=== PATIENT | female | born 1995 | race Caucasian/White ===

== ENCOUNTER 2020-12-11 16:00 | Inpatient (IN) | payer BC ==
[2020-12-11] MEDS ORDERED: Acetaminophen 325 MG Tab PO PRN (17:35)
[2020-12-11] MEDS ORDERED: Sodium Chloride 0.9% 10 ML Syringe FLUSH PRN (17:35)
[2020-12-11] MEDS ORDERED: Nalbuphine 10 MG/1 ML Vial IVPUSH PRN (17:35)
--- NOTE | 2020-12-11 17:41 | PCM.LDHP ---
L&D History of Present Illness - General Date of Service: 12/11/20 Admit Problem/Dx: Patient Status Order with Admit Dx/Problem 12/11/20 16:25 Patient Status [ADT] Routine 12/11/20 17:35 Patient Status [ADT] Routine Admission Diagnosis/Problem Admission Diagnosis/Problem - Related Data Allergies/Adverse Reactions: Allergies Allergy/AdvReac Type Severity Reaction Status Date / Time latex Allergy Rash Verified 12/11/20 16:42 Home Medications: Home Meds Vits #93/Iron Fum/FA [ Formula Tablet] 1 tab PO DAILY 12/10/20 [History] Past Medical History - Past Surgical History HEENT Surgical History: Reports: Oral Surgery Social & Family History - Family History Family Medical History: No Pertinent Family History L&D Exam - Vital Signs Weight: 87.997 kg Orders Last 24hrs: Active Orders 24 hr Category Date Time Status Patient Status [ADT] Routine ADT 12/11/20 16:25 Active Patient Status [ADT] Routine ADT 12/11/20 17:35 Ordered Communication Order [RC] ASDIRECTED Care 12/11/20 17:35 Ordered Communication Order [RC] ASDIRECTED Care 12/11/20 17:35 Ordered Communication Order [RC] ASDIRECTED Care 12/11/20 17:35 Ordered Heart Tones [RC] ASDIRECTED Care 12/11/20 17:35 Ordered Non Stress Test [RC] PER UNIT ROUTINE Care 12/11/20 16:42 Active Notify Provider [RC] ASDIRECTED Care 12/11/20 17:35 Ordered Notify Provider [RC] PRN Care 12/11/20 17:35 Ordered Peripheral IV Care [RC] . DIRECTED Care 12/11/20 17:35 Ordered Up ad Bernice [RC] ASDIRECTED Care 12/11/20 17:36 Ordered Vaginal Exam [RC] ASDIRECTED Care 12/11/20 17:35 Ordered Vital Signs [RC] ASDIRECTED Care 12/11/20 17:35 Ordered Vital Signs [RC] PER UNIT ROUTINE Care 12/11/20 16:42 Active Regular Diet [DIET] Diet 12/11/20 Dinner Active Regular Diet [DIET] Diet 12/11/20 Dinner Ordered ALANINE AMINOTRANSFERASE,ALT [CHEM] Routine Lab 12/11/20 17:39 Ordered ASPARTATE AMNIOTRANSFERASE,AST [CHEM] Routine Lab 12/11/20 17:39 Ordered CBC W/O DIFF,HEMOGRAM [HEME] Routine Lab 12/11/20 17:35 Ordered CORONAVIRUS COVID-19 JAZMIN [MOLEC] Stat Lab 12/11/20 17:39 Ordered CREATININE W/GFR [CHEM] Routine Lab 12/11/20 17:39 Ordered PROTEIN/CREATININE RATIO,URINE [URCHEM] Routine Lab 12/11/20 17:39 Ordered RAPID PLASMA REAGIN,RPR [CHEM] Routine Lab 12/11/20 17:35 Ordered TYPE AND SCREEN [BBK] Routine Lab 12/11/20 17:35 Ordered Acetaminophen [TylenoL] Med 12/11/20 17:35 Ordered 650 mg PO Q4H PRN Ampicillin 1 gm Med 12/12/20 11:00 Ordered Sodium Chloride 0.9% [Normal Saline] 100 ml IV Q4H Ampicillin 2 gm Med 12/12/20 07:00 Ordered Sodium Chloride 0.9% [Normal Saline] 100 ml IV ONETIME Lactated Ringers [Ringers, Lactated] 1,000 ml Med 12/11/20 17:45 Ordered IV ASDIRECTED Nalbuphine [Nubain] Med 12/11/20 17:35 Ordered 10 mg IVPUSH Q2H PRN Ondansetron [Zofran] Med 12/11/20 17:35 Ordered 4 mg IVPUSH Q4H PRN Oxytocin/Lactated Ringers [Pitocin in LR 10 Units/1,000 Med 12/11/20 17:45 Ordered ML] 10 unit in 1,000 ml IV .CONTINUOUS Oxytocin/Lactated Ringers [Pitocin in LR 10 Units/1,000 Med 12/11/20 17:45 Ordered ML] 10 unit in 1,000 ml IV TITRATE Sodium Chloride 0.9% [Saline Flush] Med 12/11/20 17:35 Ordered 10 ml FLUSH ASDIRECTED PRN miSOPROStoL [Cytotec] Med 12/11/20 17:35 Ordered 25 mcg VAG Q4H PRN Electronic Heart Tones Ext w TOCO [WOMSER] Oth 12/11/20 17:35 Ordered Routine Electronic Heart Tones Internal [WOMSER] Per Unit Oth 12/11/20 17:35 Ordered Routine Medication Administration Instruction [OM.PC] Oth 12/11/20 17:45 Ordered ASDIRECTED PIH Panel [OM.PC] Routine Oth 12/11/20 17:35 Ordered Peripheral IV Insertion Adult [OM.PC] Routine Oth 12/11/20 17:35 Ordered Resuscitation Status Routine Resus Stat 12/11/20 16:42 Ordered Medication Orders Acetaminophen (Acetaminophen 325 Mg Tab) 650 mg PO Q4H PRN PRN Reason: Pain (Mild 1-3) and fever Lactated Ringer's (Ringers, Lactated) 1,000 mls @ 40 mls/hr IV ASDIRECTED PETEY Oxytocin/Lactated Ringer's (Pitocin In Lr 10 Units/1,000 Ml) 10 unit in 1,000 mls @ 12 mls/hr IV TITRATE PETEY; Protocol Ampicillin Sodium 2 gm/ Sodium (Chloride) 100 mls @ 200 mls/hr IV ONETIME ONE Stop: 12/12/20 07:29 Ampicillin Sodium 1 gm/ Sodium (Chloride) 100 mls @ 200 mls/hr IV Q4H PETEY Oxytocin/Lactated Ringer's (Pitocin In Lr 10 Units/1,000 Ml) 10 unit in 1,000 mls @ 500 mls/hr IV .CONTINUOUS PETEY Misoprostol (Misoprostol 100 Mcg Tab) 25 mcg VAG Q4H PRN PRN Reason: cervical ripening Nalbuphine HCl (Nalbuphine 10 Mg/1 Ml Vial) 10 mg IVPUSH Q2H PRN PRN Reason: Pain Ondansetron HCl (Ondansetron 4 Mg/2 Ml Sdv) 4 mg IVPUSH Q4H PRN PRN Reason: Nausea/Vomiting Sodium Chloride (Sodium Chloride 0.9% 10 Ml Syringe) 10 ml FLUSH ASDIRECTED PRN PRN Reason: Keep Vein Open
[2020-12-11] MEDS ORDERED: Oxytocin/Lactated Ringers 10 UNIT/1,000 ML BAG IV SCH ×2 (17:45)
--- NOTE | 2020-12-11 18:21 | PCM.LDHP ---
<Siobhan Zamora - Last Filed: 12/11/20 17:58> L&D History of Present Illness - General Date of Service: 12/11/20 Admit Problem/Dx: Patient Status Order with Admit Dx/Problem 12/11/20 16:25 Patient Status [ADT] Routine 12/11/20 17:35 Patient Status [ADT] Routine Admission Diagnosis/Problem Admission Diagnosis/Problem Source of Information: Patient History Limitations: Reports: No Limitations - History of Present Illness Introduction:: Patient is a 25 year old GBS + B+ who present today at 37-6 weeks gestational age (LONG 12/26/20) for evaluation of dizziness and headache. Present Illness Comments:: Patient is a 25 year old GBS + B+ who present today at 37-6 weeks gestational age (LONG 12/26/20) by 5 week US for evaluation of dizziness and he adache. She states that she noticed some dizziness and shortness of breath following the of a premature calf today. She also states that her vision seemed blurry while walking into the hospital. she also reports a headache that improved with Tylenol initially but has since returned. She was evaluated in clinic yesterday and found to have mildly elevated blood pressures; she was sent over to L&D yesterday for evaluation and her blood pressures normalized. However, today she presented with the above symptoms. Patient reports a history of anxiety, congenital anomaly of the brain, cholecystectomy and colonoscopy with tubular adenomatous colon polyp and melanosis coli. . Patient received [facility] care with Dr. Marlow. No other known complications during her . Her blood pressures remained mildly elevated (130s/90s) during her OB Triage and the decision was to admit for induction/augmentation of labor. Flu vaccine given 06/07/20, Tdap 10/22/20. OBGYN History G1: current labs: Blood type:B+ Antibody screen: Negative Rubella status: Non immune Hepatitis B surface antigen: negative RPR: negative HIV: negative Gonorrhea: Negative Chlamydia: negative Anatomy US: Marie IUP with normal growth, CHAD, placental location and anatomy One hour glucose tolerance test: 112 Second trimester hemoglobin: 10.8 Platelets: 250,000 GBS status: positive - Related Data Allergies/Adverse Reactions: Allergies Allergy/AdvReac Type Severity Reaction Status Date / Time latex Allergy Rash Verified 12/11/20 16:42 Home Medications: Home Meds Vits #93/Iron Fum/FA [ Formula Tablet] 1 tab PO DAILY 12/10/20 [History] Past Medical History Neurological History: Reports: Other (See Below) (Cognential malformation, brain stem) - Past Surgical History HEENT Surgical History: Reports: Oral Surgery GI Surgical History: Reports: Cholecystectomy, Colonoscopy (polyp removal) Dermatological Surgical History: Reports: Other (See Below) (Excisional biopsy - nevus) Social & Family History - Family History Family Medical History: No Pertinent Family History - Tobacco Core Measures Tobacco Use/Smoking Within Last 30 Days: No - Alcohol Use Alcohol Use History: No - Recreational Drug Use Recreational Drug Use: No H&P Review of Systems - Review of Systems: Review Of Systems: See Below General: Reports: No Symptoms HEENT: Reports: No Symptoms Pulmonary: Reports: No Symptoms Cardiovascular: Reports: No Symptoms Gastrointestinal: Reports: No Symptoms Genitourinary: Reports: No Symptoms Musculoskeletal: Reports: No Symptoms Skin: Reports: No Symptoms Psychiatric: Reports: No Symptoms Neurological: Reports: No Symptoms L&D Exam - Exam Exam: See Below - Vital Signs Weight: 87.997 kg - OB Specific Movement: Active Heart Tones: Present - Exam General: Alert, Oriented HEENT: Conjunctiva Clear, EOMI Lungs: Clear to Auscultation, Normal Respiratory Effort Cardiovascular: Regular Rate, Regular Rhythm GI/Abdominal Exam: Normal Bowel Sounds, Soft, Non-Tender Extremities: Normal Inspection, Non-Tender, Normal Capillary Refill Skin: Warm, Dry, Intact Psychiatric: Alert, Normal Affect, Normal Mood - Problem List (1) Group B streptococcal carriage complicating SNOMED Code(s): 782582950432647 ICD Code: O99.820 - STREPTOCOCCUS B CARRIER STATE COMPLICATING Status: Acute Current Visit: Yes (2) 37 weeks gestation of SNOMED Code(s): 60415091 ICD Code: Z3A.37 - 37 WEEKS GESTATION OF Status: Acute Current Visit: Yes (3) Elevated blood pressure affecting in third trimester, antepartum SNOMED Code(s): 65167429, 46126012, 122288269 ICD Code: O16.3 - UNSPECIFIED MATERNAL HYPERTENSION, THIRD TRIMESTER Status: Acute Current Visit: Yes (4) Not immune to rubella SNOMED Code(s): 264184704 ICD Code: Z78.9 - OTHER SPECIFIED HEALTH STATUS Status: Acute Current Visit: Yes (5) Anxiety SNOMED Code(s): 23446824 ICD Code: F41.9 - ANXIETY DISORDER, UNSPECIFIED Status: Acute Current Vi sit: Yes Problem List Initiated/Reviewed/Updated: Yes Orders Last 24hrs: Active Orders 24 hr Category Date Time Status Patient Status [ADT] Routine ADT 12/11/20 16:25 Active Patient Status [ADT] Routine ADT 12/11/20 17:35 Active Communication Order [RC] ASDIRECTED Care 12/11/20 17:35 Active Communication Order [RC] ASDIRECTED Care 12/11/20 17:35 Active Communication Order [RC] ASDIRECTED Care 12/11/20 17:35 Active Heart Tones [RC] ASDIRECTED Care 12/11/20 17:35 Active Non Stress Test [RC] PER UNIT ROUTINE Care 12/11/20 16:42 Active Notify Provider [RC] ASDIRECTED Care 12/11/20 17:35 Active Notify Provider [RC] PRN Care 12/11/20 17:35 Active Peripheral IV Care [RC] . DIRECTED Care 12/11/20 17:35 Active Up ad Bernice [RC] ASDIRECTED Care 12/11/20 17:36 Active Vaginal Exam [RC] ASDIRECTED Care 12/11/20 17:35 Active Vital Signs [RC] ASDIRECTED Care 12/11/20 17:35 Active Vital Signs [RC] PER UNIT ROUTINE Care 12/11/20 16:42 Active Regular Diet [DIET] Diet 12/11/20 Dinner Active Regular Diet [DIET] Diet 12/11/20 Dinner Active ALANINE AMINOTRANSFERASE,ALT [CHEM] Routine Lab 12/11/20 17:39 Ordered ASPARTATE AMNIOTRANSFERASE,AST [CHEM] Routine Lab 12/11/20 17:39 Ordered CBC W/O DIFF,HEMOGRAM [HEME] Routine Lab 12/11/20 17:35 Ordered CORONAVIRUS COVID-19 JAZMIN [MOLEC] Stat Lab 12/11/20 17:39 Ordered CREATININE W/GFR [CHEM] Routine Lab 12/11/20 17:39 Ordered PROTEIN/CREATININE RATIO,URINE [URCHEM] Routine Lab 12/11/20 17:39 Ordered RAPID PLASMA REAGIN,RPR [CHEM] Routine Lab 12/11/20 17:35 Ordered TYPE AND SCREEN [BBK] Routine Lab 12/11/20 17:35 Ordered Acetaminophen [TylenoL] Med 12/11/20 17:35 Active 650 mg PO Q4H PRN Ampicillin 1 gm Med 12/12/20 11:00 Active Sodium Chloride 0.9% [Normal Saline] 100 ml IV Q4H Ampicillin 2 gm Med 12/12/20 07:00 Active Sodium Chloride 0.9% [Normal Saline] 100 ml IV ONETIME Lactated Ringers [Ringers, Lactated] 1,000 ml Med 12/11/20 17:45 Active IV ASDIRECTED Nalbuphine [Nubain] Med 12/11/20 17:35 Active 10 mg IVPUSH Q2H PRN Ondansetron [Zofran] Med 12/11/20 17:35 Active 4 mg IVPUSH Q4H PRN Oxytocin/Lactated Ringers [Pitocin in LR 10 Units/1,000 Med 12/11/20 17:45 Active ML] 10 unit in 1,000 ml IV .CONTINUOUS Oxytocin/Lactated Ringers [Pitocin in LR 10 Units/1,000 Med 12/11/20 17:45 A ctive ML] 10 unit in 1,000 ml IV TITRATE Sodium Chloride 0.9% [Saline Flush] Med 12/11/20 17:35 Active 10 ml FLUSH ASDIRECTED PRN miSOPROStoL [Cytotec] Med 12/11/20 17:35 Active 25 mcg VAG Q4H PRN Electronic Heart Tones Ext w TOCO [WOMSER] Oth 12/11/20 17:35 Ordered Routine Electronic Heart Tones Internal [WOMSER] Per Unit Oth 12/11/20 17:35 Ord ered Routine Medication Administration Instruction [OM.PC] Oth 12/11/20 17:45 Ordered ASDIRECTED PIH Panel [OM.PC] Routine Oth 12/11/20 17:35 Ordered Peripheral IV Insertion Adult [OM.PC] Routine Ot 12/11/20 17:35 Ordered Resuscitation Status Routine Resus Stat 12/11/20 16:42 Ordered Medication Orders Acetaminophen (Acetaminophen 325 Mg Tab) 650 mg PO Q4H PRN PRN Reason: Pain (Mild 1-3) and fever Lactated Ringer's (Ringers, Lactated) 1,000 mls @ 40 mls/hr IV ASDIRECTED PETEY Oxytocin/Lactated Ringer's (Pitocin In Lr 10 Units/1,000 Ml) 10 unit in 1,000 mls @ 12 mls/hr IV TITRATE PETEY; Protocol Ampicillin Sodium 2 gm/ Sodium (Chloride) 100 mls @ 200 mls/hr IV ONETIME ONE Stop: 12/12/20 07:29 Ampicillin Sodium 1 gm/ Sodium (Chloride) 100 mls @ 200 mls/hr IV Q4H PETEY Oxytocin/Lactated Ringer's (Pitocin In Lr 10 Units/1,000 Ml) 10 unit in 1,000 mls @ 500 mls/hr IV .CONTINUOUS PETEY Misoprostol (Misoprostol 25 Mcg (1/4 Of 100 Mcg) Tab) 25 mcg VAG Q4H PRN PRN Reason: cervical ripening Nalbuphine HCl (Nalbuphine 10 Mg/1 Ml Vial) 10 mg IVPUSH Q2H PRN PRN Reason: Pain Ondansetron HCl (Ondansetron 4 Mg/2 Ml Sdv) 4 mg IVPUSH Q4H PRN PRN Reason: Nausea/Vomiting Sodium Chloride (Sodium Chloride 0.9% 10 Ml Syringe) 10 ml FLUSH ASDIRECTED PRN PRN Reason: Keep Vein Open Assessment/Plan Comment:: Patient is a 25 year old GBS + B+ who present today at 37-6 weeks gestational age (LONG 12/26/20) for evaluation of dizziness and ongoing headache. Blood pressure remained elevated; patient was previously evaluated yesterday for elevated blood pressures. Decision was made to proceed with induction of labor. 1. Induction of labor with Cytotec, augmentation with Pitocin and AROM as indicated 2. B+ with negative antibody screen 3. Rubella non immune - MMR vaccine on discharge 4. GBS positive - ampicillin 2 mg followed by 1 mg every 4 hours until adequately treated 5. Continuous monitoring 6. Monitor blood pressures, patient denies headache or changes in vision. BP has remained 130s/90s 7. Small amounts of regular diet 8. Activity as tolerated 9. Epidural or other pain management if desired 10. Anticipate vaginal delivery unless otherwise indicated 11. Plans to breastfeed <Harriet Marlow - Last Filed: 12/11/20 19:14> L&D History of Present Illness - General Admit Problem/Dx: Patient Status Order with Admit Dx/Problem 12/11/20 16:25 Patient Status [ADT] Routine 12/11/20 17:35 Patient Status [ADT] Routine Admission Diagnosis/Problem Admission Diagnosis/Problem - Patient Data Result Diagrams: 12/11/20 17:55 12/11/20 17:55 - Problem List (1) 37 weeks gestation of SNOMED Code(s): 53872124 ICD Code: Z3A.37 - 37 WEEKS GESTATION OF Status: Acute Current Visit: Yes (2) Elevated blood pressure affecting in third trimester, antepartum SNOMED Code(s): 20980696, 50757837, 831167270 ICD Code: O16.3 - UNSPECIFIED MATERNAL HYPERTENSION, THIRD TRIMESTER Status: Acute Current Visit: Yes (3) Group B streptococcal carriage complicating SNOMED Code(s): 656389648284633 ICD Code: O99.820 - STREPTOCOCCUS B CARRIER STATE COMPLICATING Status: Acute Current Visit: Yes (4) Not immune to rubella SNOMED Code(s): 693121956 ICD Code: Z78.9 - OTHER SPECIFIED HEALTH STATUS Status: Acute Current Visit: Yes Problem List Initiated/Reviewed/Updated: Yes Assessment/Plan Comment:: Patient is a 25 y/o at 37 6/7 wks. Yesterday patient with routine clinic appointment with 2 elevated BP's. Sent to L&D where first BP mild range and remainder normal. Lab work done and WNL. Reviewed findings and discharged patient to home with close follow up planned for tomorrow. Called, however, clinic today feeling unwell and was asked to present to L&D. Has some symptoms of dizziness/lightheadedness, but also headache. Treated this headache this AM with tylenol and resolved, but now returning. BP's upper limit of normal and 1 mild range BP again on initial evaluation. Exam shows patient to have +3 patellar and biceps reflexes. Reviewed with patient likely enough criteria to diagnosis with BP disorder of even though BP's not consistently elevated. Reviewed with patient options and recommendations to stay for IOL. She agrees. Labs to be done. Monitor BP's closely. Cytotec for IOL with pitocin and AROM as necessary. Start GBS prophylaxis when more active in labor. Pain management per patient preference. Anticipate Harriet Marlow MD
[2020-12-11] MEDS: Misoprostol 25 MCG (1/4 of 100 MCG) Tab VAG PRN ×2 (18:33→22:32)
[2020-12-11] MEDS ORDERED: Zolpidem 10 MG Tab PO PRN (20:31)
[2020-12-11] MEDS: Lactated Ringers 1,000 ML IV SCH (23:17)
[2020-12-12] MEDS: Misoprostol 25 MCG (1/4 of 100 MCG) Tab VAG PRN (03:12)
[2020-12-12] MEDS ORDERED: Ampicillin 2 GM in Sodium Chloride 0.9% 100 ML IV ONE (07:00)
--- NOTE | 2020-12-12 07:35 | PCM.PNLD ---
Labor Progress Note - VS & Meds Vital Signs: Last Vital Signs Temp 36.6 C 12/11/20 16:42 Pulse 78 12/11/20 19:01 Resp 14 12/11/20 16:42 BP 127/82 12/11/20 19:01 Pulse Ox 100 12/11/20 16:42 Active Medications: Current Medications Acetaminophen (Acetaminophen 325 Mg Tab) 650 mg PO Q4H PRN PRN Reason: Pain (Mild 1-3) and fever Lactated Ringer's (Ringers, Lactated) 1,000 mls @ 40 mls/hr IV ASDIRECTED PETEY Last Admin: 12/11/20 23:17 Dose: 40 mls/hr Documented by: Oxytocin/Lactated Ringer's (Pitocin In Lr 10 Units/1,000 Ml) 10 unit in 1,000 mls @ 12 mls/hr IV TITRATE PETEY; Protocol Ampicillin Sodium 1 gm/ Sodium (Chloride) 100 mls @ 200 mls/hr IV Q4H PETEY Oxytocin/Lactated Ringer's (Pitocin In Lr 10 Units/1,000 Ml) 10 unit in 1,000 mls @ 500 mls/hr IV .CONTINUOUS PETEY Nalbuphine HCl (Nalbuphine 10 Mg/1 Ml Vial) 10 mg IVPUSH Q2H PRN PRN Reason: Pain Ondansetron HCl (Ondansetron 4 Mg/2 Ml Sdv) 4 mg IVPUSH Q4H PRN PRN Reason: Nausea/Vomiting Sodium Chloride (Sodium Chloride 0.9% 10 Ml Syringe) 10 ml FLUSH ASDIRECTED PRN PRN Reason: Keep Vein Open Zolpidem Tartrate (Zolpidem 10 Mg Tab) 10 mg PO ONETIME PRN PRN Reason: Insomnia Last Admin: 12/11/20 22:32 Dose: 10 mg Documented by: Discontinued Medications Ampicillin Sodium 2 gm/ Sodium (Chloride) 100 mls @ 200 mls/hr IV ONETIME ONE Stop: 12/12/20 07:29 Misoprostol (Misoprostol 25 Mcg (1/4 Of 100 Mcg) Tab) 25 mcg VAG Q4H PRN PRN Reason: cervical ripening Last Admin: 12/12/20 03:12 Dose: 25 mcg Documented by: - Uterine Contractions Uterine Monitoring Mode: External [place] Contraction Intensity: Mild Uterine Resting Tone: Soft - Monitoring Monitor Mode: External Ultrasound Heart Rate (FHR) Baseline: 150 Heart Rate (FHR) Variability: Moderate (6-25 bmp) Accelerations: Present, 15x15 Decelerations: Variable, Intermittent (<50% x 20 min) Strip Review: Category II - Vaginal Exam Dilation (cm): 2 Effacement (Percent): 60 Station: -2 Cervical Position: Midposition - Labor Progress (Free Text) Labor Progress: S/p 3 doses of Cytotec overnight. Doing well. Feeling mild cramping. Erickson bulb placed currently. Will transition to Pitocin this AM. Start antibiotic prophylaxis when more active. Continue present management otherwise
[2020-12-12] MEDS: Lactated Ringers 1,000 ML IV SCH ×4 (08:11→14:08)
[2020-12-12] MEDS: Sertraline 25 MG Tab PO SCH ×2 (08:25→11:48)
[2020-12-12] MEDS: Ondansetron 4 MG/2 ML SDV IVPUSH PRN ×2 (09:11→12:18)
[2020-12-12] MEDS ORDERED: diphenhydrAMINE 50 MG/ML SDV IVPUSH PRN (11:35)
[2020-12-12] MEDS ORDERED: ePHEDrine 50 MG/ML SDV IVPUSH PRN (11:35)
[2020-12-12] MEDS ORDERED: Bupivacaine/fentaNYL/NS 100 ML Bag EPIDUR PRN (11:35)
[2020-12-12] MEDS ORDERED: fentaNYL 100 MCG/2 ML SDV EPIDUR PRN (11:35)
[2020-12-12] MEDS: Ampicillin 1 GM in Sodium Chloride 0.9% 100 ML IV SCH ×3 (11:46→21:00)
--- NOTE | 2020-12-12 12:18 | PCM.PNLD ---
Labor Progress Note - VS & Meds Vital Signs: Last Vital Signs Temp 36.6 C 12/11/20 16:42 Pulse 78 12/11/20 19:01 Resp 14 12/11/20 16:42 BP 127/82 12/11/20 19:01 Pulse Ox 100 12/11/20 16:42 Active Medications: Current Medications Acetaminophen (Acetaminophen 325 Mg Tab) 650 mg PO Q4H PRN PRN Reason: Pain (Mild 1-3) and fever Diphenhydramine HCl (Diphenhydramine 50 Mg/Ml Sdv) 25 mg IVPUSH Q6H PRN PRN Reason: pruritis Ephedrine Sulfate (Ephedrine 50 Mg/Ml Sdv) 5 mg IVPUSH ASDIRECTED PRN PRN Reason: Hypotension Fentanyl (Fentanyl 100 Mcg/2 Ml Sdv) 100 mcg EPIDUR Q3H PRN PRN Reason: Pain Fentanyl/Bupivacaine HCl (Bupivacaine/Fentanyl/Ns 100 Ml Bag) 100 ml EPIDUR ASDIRECTED PRN PRN Reason: Pain Lactated Ringer's (Ringers, Lactated) 1,000 mls @ 40 mls/hr IV ASDIRECTED PETEY Last Admin: 12/12/20 11:45 Dose: 40 mls/hr Documented by: Oxytocin/Lactated Ringer's (Pitocin In Lr 10 Units/1,000 Ml) 10 unit in 1,000 mls @ 12 mls/hr IV TITRATE ON LICENSE OF [facility]; Protocol Last Titration: 12/12/20 12:14 Dose: 2 munits/min, 12 mls/hr Documented by: Ampicillin Sodium 1 gm/ Sodium (Chloride) 100 mls @ 200 mls/hr IV Q4H ON LICENSE OF [facility] Last Admin: 12/12/20 11:46 Dose: 200 mls/hr Documented by: Oxytocin/Lactated Ringer's (Pitocin In Lr 10 Units/1,000 Ml) 10 unit in 1,000 mls @ 500 mls/hr IV .CONTINUOUS PETEY Nalbuphine HCl (Nalbuphine 10 Mg/1 Ml Vial) 10 mg IVPUSH Q2H PRN PRN Reason: Pain Ondansetron HCl (Ondansetron 4 Mg/2 Ml Sdv) 4 mg IVPUSH Q4H PRN PRN Reason: Nausea/Vomiting Last Admin: 12/12/20 09:11 Dose: 4 mg Documented by: Sertraline HCl (Sertraline 25 Mg Tab) 25 mg PO DAILY PETEY Last Admin: 12/12/20 11:48 Dose: Not Given Documented by: Sodium Chloride (Sodium Chloride 0.9% 10 Ml Syringe) 10 ml FLUSH ASDIRECTED PRN PRN Reason: Keep Vein Open Zolpidem Tartrate (Zolpidem 10 Mg Tab) 10 mg PO ONETIME PRN PRN Reason: Insomnia Last Admin: 12/11/20 22:32 Dose: 10 mg Documented by: Discontinued Medications Ampicillin Sodium 2 gm/ Sodium (Chloride) 100 mls @ 200 mls/hr IV ONETIME ONE Stop: 12/12/20 07:29 Last Admin: 12/12/20 08:08 Dose: 200 mls/hr Documented by: Misoprostol (Misoprostol 25 Mcg (1/4 Of 100 Mcg) Tab) 25 mcg VAG Q4H PRN PRN Reason: cervical ripening Last Admin: 12/12/20 03:12 Dose: 25 mcg Documented by: - Uterine Contractions Uterine Monitoring Mode: External [place] Contraction Intensity: Moderate to Strong Uterine Resting Tone: Soft - Monitoring Monitor Mode: External Ultrasound Heart Rate (FHR) Baseline: 140 Heart Rate (FHR) Variability: Moderate (6-25 bmp) Accelerations: Present, 15x15 Decelerations: None Strip Review: Category I - Vaginal Exam Dilation (cm): 5 Effacement (Percent): 75 Station: -1 Cervical Position: Midposition - Labor Progress (Free Text) Labor Progress: Doing well. Was on 6 of pitocin, but just dropped down to 2 given frequent contractions and just SROM'd. Making good change. S/p 2 doses of antibiotics. BP's normal to mild range. Continue current management
--- NOTE | 2020-12-12 13:25 | PCM.PREANE ---
Preanesthetic Assessment - Procedure Proposed Procedure: Continuous labor epidural - Anesthesia/Transfusion/Family Hx Anesthesia History: Prior Anesthesia Without Reaction Transfusion History: No Prior Transfusion(s) - Review of Systems General: No Symptoms Pulmonary: No Symptoms Cardiovascular: No Symptoms Gastrointestinal: No Symptoms Neurological: No Symptoms Other: Reports: None - Physical Assessment Vital Signs: Last Vital Signs Temp 97.9 F 12/11/20 16:42 Pulse 78 12/11/20 19:01 Resp 14 12/11/20 16:42 BP 127/82 12/11/20 19:01 Pulse Ox 100 12/11/20 16:42 Height: 1.6 m Weight: 87.997 kg ASA Class: 2 Mental Status: Alert & Oriented x3 Airway Class: Mallampati = 2 Dentition: Reports: Normal Dentition Thyro-Mental Finger Breadths: 3 Mouth Opening Finger Breadths: 3 ROM/Head Extension: Full Lungs: Clear to Auscultation, Normal Respiratory Effort Cardiovascular: Regular Rate, Regular Rhythm - Lab Values: Laboratory Last Values WBC 12.60 K/mm3 (3.98-10.04) H 12/11/20 17:55 RBC 3.78 M/mm3 (3.98-5.22) L 12/11/20 17:55 Hgb 11.1 gm/dl (11.2-15.7) L 12/11/20 17:55 Hct 34.3 % (34.1-44.9) 12/11/20 17:55 MCV 90.7 fl (79.4-94.8) 12/11/20 17:55 MCH 29.4 pg (25.6-32.2) 12/11/20 17:55 MCHC 32.4 g/dl (32.2-35.5) 12/11/20 17:55 RDW Std Deviation 39.5 fL (36.4-46.3) 12/11/20 17:55 Plt Count 237 K/mm3 (182-369) 12/11/20 17:55 MPV 10.5 fl (9.4-12.3) 12/11/20 17:55 Creatinine 0.7 mg/dL (0.55-1.02) 12/11/20 17:55 Est Cr Clr Drug Dosing 103.40 mL/min 12/11/20 17:55 Estimated GFR (MDRD) > 60 mL/min (>60) 12/11/20 17:55 AST 25 U/L (15-37) 12/11/20 17:55 ALT 22 U/L (14-59) 12/11/20 17:55 Ur Random Creatinine 76.7 mg/dL (30.0-125.0) 12/12/20 00:00 U Random Total Protein 14.1 mg/dL (0.0-11.8) H 12/12/20 00:00 Protein/Creatinin Ratio 183.8 mg/g (0-149) H 12/12/20 00:00 RPR Non-reactive (NONREACTIVE) 12/11/20 17:55 SARS-CoV-2 RNA (JAZMIN) Negative (NEGATIVE) 12/11/20 18:00 Blood Type B POSITIVE 12/11/20 17:55 Gel Antibody Screen Negative 12/11/20 17:55 - Allergies Allergies/Adverse Reactions: Allergies Allergy/AdvReac Type Severity Reaction Status Date / Time latex Allergy Rash Verified 12/11/20 16:42 - Acknowledgements Anesthesia Type Planned: Epidural Pt an Appropriate Candidate for the Planned Anesthesia: Yes Alternatives and Risks of Anesthesia Discussed w Pt/Guardian: Yes Pt/Guardian Understands and Agrees with Anesthesia Plan: Yes PreAnesthesia Questionnaire HEENT History: Reports: Other (See Below) Other HEENT History: has increased pressures in left eye. 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 Psychiatric History: Reports: Depression - Past Surgical History HEENT Surgical History: Reports: Oral Surgery GI Surgical History: Reports: Cholecystectomy, Colonoscopy Dermatological Surgical History: Reports: Other (See Below) - SUBSTANCE USE Tobacco Use Status *Q: Never Tobacco User Second Hand Smoke Exposure: No Recreational Drug Use History: No - HOME MEDS Home Medications: Home Meds Vits #93/Iron Fum/FA [ Formula Tablet] 1 tab PO DAILY 12/10/20 [History] Sertraline [Zoloft] 1 tab PO DAILY 12/11/20 [History] - CURRENT (IN HOUSE) MEDS Current Meds: Current Medications Acetaminophen (Acetaminophen 325 Mg Tab) 650 mg PO Q4H PRN PRN Reason: Pain (Mild 1-3) and fever Diphenhydramine HCl (Diphenhydramine 50 Mg/Ml Sdv) 25 mg IVPUSH Q6H PRN PRN Reason: pruritis Ephedrine Sulfate (Ephedrine 50 Mg/Ml Sdv) 5 mg IVPUSH ASDIRECTED PRN PRN Reason: Hypotension Fentanyl (Fentanyl 100 Mcg/2 Ml Sdv) 100 mcg EPIDUR Q3H PRN PRN Reason: Pain Last Admin: 12/12/20 12:41 Dose: 100 mcg Documented by: Fentanyl/Bupivacaine HCl (Bupivacaine/Fentanyl/Ns 100 Ml Bag) 100 ml EPIDUR ASDIRECTED PRN PRN Reason: Pain Last Admin: 12/12/20 12:41 Dose: 100 ml Documented by: Lactated Ringer's (Ringers, Lactated) 1,000 mls @ 40 mls/hr IV ASDIRECTED PETEY Last Admin: 12/12/20 11:45 Dose: 40 mls/hr Documented by: Oxytocin/Lactated Ringer's (Pitocin In Lr 10 Units/1,000 Ml) 10 unit in 1,000 mls @ 12 mls/hr IV TITRATE PETEY; Protocol Last Titration: 12/12/20 12:14 Dose: 2 munits/min, 12 mls/hr Documented by: Ampicillin Sodium 1 gm/ Sodium (Chloride) 100 mls @ 200 mls/hr IV Q4H [facility] Last Admin: 12/12/20 11:46 Dose: 200 mls/hr Documented by: Oxytocin/Lactated Ringer's (Pitocin In Lr 10 Units/1,000 Ml) 10 unit in 1,000 mls @ 500 mls/hr IV .CONTINUOUS PETEY Nalbuphine HCl (Nalbuphine 10 Mg/1 Ml Vial) 10 mg IVPUSH Q2H PRN PRN Reason: Pain Ondansetron HCl (Ondansetron 4 Mg/2 Ml Sdv) 4 mg IVPUSH Q4H PRN PRN Reason: Nausea/Vomiting Last Admin: 12/12/20 12:18 Dose: 4 mg Documented by: Sertraline HCl (Sertraline 25 Mg Tab) 25 mg PO DAILY PETEY Last Admin: 12/12/20 11:48 Dose: Not Given Documented by: Sodium Chloride (Sodium Chloride 0.9% 10 Ml Syringe) 10 ml FLUSH ASDIRECTED PRN PRN Reason: Keep Vein Open Zolpidem Tartrate (Zolpidem 10 Mg Tab) 10 mg PO ONETIME PRN PRN Reason: Insomnia Last Admin: 12/11/20 22:32 Dose: 10 mg Documented by: Discontinued Medications Ampicillin Sodium 2 gm/ Sodium (Chloride) 100 mls @ 200 mls/hr IV ONETIME ONE Stop: 12/12/20 07:29 Last Admin: 12/12/20 08:08 Dose: 200 mls/hr Documented by: Misoprostol (Misoprostol 25 Mcg (1/4 Of 100 Mcg) Tab) 25 mcg VAG Q4H PRN PRN Reason: cervical ripening Last Admin: 12/12/20 03:12 Dose: 25 mcg Documented by:
[2020-12-12] MEDS ORDERED: Lidocaine 1.5% with EPINEPHrine 1:200,000 5 ML Amp ONE (16:00)
--- NOTE | 2020-12-12 19:27 | PCM.DEL ---
L & D Note - General Info Date of Service: 12/12/20 - Delivery Note Labor: Induced by Oxytocin Cervical Ripening Method: Balloon Device, Misoprostil Delivery Outcome: Livebirth Infant Delivery Method: Spontaneous Vaginal Delivery-Single Infant Delivery Mode: Spontaneous Presentation: Right Occiput Anterior (LIZ) Nuchal Cord: None Anesthesia Type: Epidural Amniotic Fluid Description: Clear Episiotomy Type: None Laceration: 2nd Degree Suture type: Vicryl Suture size: 3-0 Placenta: Intact, Spontaneous Cord: 3 Vessels Estimated Blood Loss: 250 Resuscitation Needed: Yes [place]: Bulb Syringe, Stimulated, Warmed, [place] Used, Warmer Used Delivery Comments (Free Text/Narrative):: Patient found to be complete and began pushing. With maternal pushing effort head delivered from LIZ presentation. No nuchal cord present. With gentle downward traction shoulders and body delivered. Infant placed on maternal abdomen. Cord clamped and cut. Cord blood obtained. Placenta allowed time to separate and expelled intact. Inspection of perineum showed a 2nd degree laceration repaired with a 3-0 Vicryl in the typical fashion - General Info Date of Service: 12/12/20 - Patient Data Vitals - Most Recent: Last Vital Signs Temp 36.6 C 12/11/20 16:42 Pulse 78 12/11/20 19:01 Resp 14 12/11/20 16:42 BP 127/82 12/11/20 19:01 Pulse Ox 100 12/11/20 16:42 Weight - Most Recent: 87.997 kg - Problem List & Annotations (1) 37 weeks gestation of SNOMED Code(s): 78118440 Code(s): Z3A.37 - 37 WEEKS GESTATION OF Status: Acute Current Visit: Yes (2) Elevated blood pressure affecting in third trimester, antepartum SNOMED Code(s): 81300290, 09362120, 945773613 Code(s): O16.3 - UNSPECIFIED MATERNAL HYPERTENSION, THIRD TRIMESTER Status: Acute Current Visit: Yes (3) Group B streptococcal carriage complicating SNOMED Code(s): 857445008174541 Code(s): O99.820 - STREPTOCOCCUS B CARRIER STATE COMPLICATING Status: Acute Current Visit: Yes (4) Not immune to rubella SNOMED Code(s): 090143515 Code(s): Z78.9 - OTHER SPECIFIED HEALTH STATUS Status: Acute Current Visit: Yes - Problem List Review Problem List Initiated/Reviewed/Updated: Yes - My Orders Last 24 Hours: My Active Orders 12/11/20 20:31 Zolpidem [Ambien] 10 mg PO ONETIME PRN 12/12/20 08:00 Sertraline [Zoloft] 25 mg PO DAILY 12/12/20 11:00 Ampicillin 1 gm Sodium Chloride 0.9% [Normal Saline] 100 ml IV Q4H 12/12/20 19:24 Patient Status Manage Transfer [TRANSFER] Routine 12/13/20 09:00 Sertraline [Zoloft] 25 mg PO DAILY - Assessment Assessment:: PPD#0 - Plan Plan:: Routine cares Breast feeding Monitor BP's closely Discharge home in 1-2 days
[2020-12-12] MEDS ORDERED: Benzocaine/Menthol 20%-0.5% Spray 56 GM Canister TOP PRN (20:30)
[2020-12-12] MEDS ORDERED: Acetaminophen 325 MG Tab PO PRN (20:30)
[2020-12-12] MEDS ORDERED: Docusate Sodium 100 MG Cap PO PRN (20:30)
[2020-12-12] MEDS ORDERED: Witch Hazel Medicated Pads 40/Jar TOP PRN (20:30)
[2020-12-12] MEDS: Ibuprofen 600 MG Tab PO PRN (22:22)
[2020-12-13] MEDS: Ibuprofen 600 MG Tab PO PRN ×2 (03:30→11:10)
--- NOTE | 2020-12-13 07:21 | PCM.PNPP ---
- General Info Date of Service: 12/13/20 Functional Status: Reports: Pain Controlled, Tolerating Diet, Ambulating, Urinating - Review of Systems General: Reports: No Symptoms Pulmonary: Reports: No Symptoms Cardiovascular: Reports: No Symptoms Gastrointestinal: Reports: No Symptoms Genitourinary: Reports: No Symptoms Musculoskeletal: Reports: No Symptoms Neurological: Reports: No Symptoms - Patient Data Vital Signs - Most Recent: Last Vital Signs Temp 36.6 C 12/13/20 04:15 Pulse 88 12/13/20 04:15 Resp 15 12/13/20 04:15 BP 120/65 12/13/20 04:15 Pulse Ox 99 12/13/20 04:15 Weight - Most Recent: 87.997 kg I&O - Last 24 Hours: Intake & Output 12/12/20 12/13/20 12/13/20 22:59 06:59 14:59 Intake Total 1000 Output Total 124 Balance 876 Med Orders - Current: Current Medications Acetaminophen (Acetaminophen 325 Mg Tab) 650 mg PO Q4H PRN PRN Reason: mild pain or fever Benzocaine/Menthol (Benzocaine/Menthol 20%-0.5% [place] 56 Gm Canister) 0 gm TOP ASDIRECTED PRN PRN Reason: Perineal Comfort Measure Last Admin: 12/12/20 22:23 Dose: 1 canister Documented by: Docusate Sodium (Docusate Sodium 100 Mg Cap) 100 mg PO BID PRN PRN Reason: Constipation Last Admin: 12/12/20 22:22 Dose: 100 mg Documented by: Ibuprofen (Ibuprofen 600 Mg Tab) 600 mg PO Q6H PRN PRN Reason: Mild pain or fever Last Admin: 12/13/20 03:30 Dose: 600 mg Documented by: Sertraline HCl (Sertraline 25 Mg Tab) 25 mg PO DAILY PETEY Witch Jorge (Witch Jorge Medicated Pads 40/Jar) 1 pad TOP ASDIRECTED PRN PRN Reason: Perineal Comfort Measure Last Admin: 12/12/20 22:22 Dose: 1 container Documented by: Discontinued Medications Acetaminophen (Acetaminophen 325 Mg Tab) 650 mg PO Q4H PRN PRN Reason: Pain (Mild 1-3) and fever Diphenhydramine HCl (Diphenhydramine 50 Mg/Ml Sdv) 25 mg IVPUSH Q6H PRN PRN Reason: pruritis Ephedrine Sulfate (Ephedrine 50 Mg/Ml Sdv) 5 mg IVPUSH ASDIRECTED PRN PRN Reason: Hypotension Fentanyl (Fentanyl 100 Mcg/2 Ml Sdv) 100 mcg EPIDUR Q3H PRN PRN Reason: Pain Last Admin: 12/12/20 12:41 Dose: 100 mcg Documented by: Fentanyl/Bupivacaine HCl (Bupivacaine/Fentanyl/Ns 100 Ml Bag) 100 ml EPIDUR ASDIRECTED PRN PRN Reason: Pain Last Admin: 12/12/20 12:41 Dose: 100 ml Documented by: Lactated Ringer's (Ringers, Lactated) 1,000 mls @ 40 mls/hr IV ASDIRECTED PETEY Last Admin: 12/12/20 14:08 Dose: 40 mls/hr Documented by: Oxytocin/Lactated Ringer's (Pitocin In Lr 10 Units/1,000 Ml) 10 unit in 1,000 mls @ 12 mls/hr IV TITRATE PETEY; Protocol Last Titration: 12/12/20 17:24 Dose: 12 munits/min, 72 mls/hr Documented by: Ampicillin Sodium 2 gm/ Sodium (Chloride) 100 mls @ 200 mls/hr IV ONETIME ONE Stop: 12/12/20 07:29 Last Admin: 12/12/20 08:08 Dose: 200 mls/hr Documented by: Ampicillin Sodium 1 gm/ Sodium (Chloride) 100 mls @ 200 mls/hr IV Q4H PETEY Last Admin: 12/12/20 21:00 Dose: Not Given Documented by: Oxytocin/Lactated Ringer's (Pitocin In Lr 10 Units/1,000 Ml) 10 unit in 1,000 mls @ 500 mls/hr IV .CONTINUOUS [facility] Misoprostol (Misoprostol 25 Mcg (1/4 Of 100 Mcg) Tab) 25 mcg VAG Q4H PRN PRN Reason: cervical ripening Last Admin: 12/12/20 03:12 Dose: 25 mcg Documented by: Nalbuphine HCl (Nalbuphine 10 Mg/1 Ml Vial) 10 mg IVPUSH Q2H PRN PRN Reason: Pain Ondansetron HCl (Ondansetron 4 Mg/2 Ml Sdv) 4 mg IVPUSH Q4H PRN PRN Reason: Nausea/Vomiting Last Admin: 12/12/20 12:18 Dose: 4 mg Documented by: Sertraline HCl (Sertraline 25 Mg Tab) 25 mg PO DAILY PETEY Last Admin: 12/12/20 11:48 Dose: Not Given Documented by: Sertraline HCl (Sertraline 25 Mg Tab) 25 mg PO DAILY PETEY Sodium Chloride (Sodium Chloride 0.9% 10 Ml Syringe) 10 ml FLUSH ASDIRECTED PRN PRN Reason: Keep Vein Open Zolpidem Tartrate (Zolpidem 10 Mg Tab) 10 mg PO ONETIME PRN PRN Reason: Insomnia Last Admin: 12/11/20 22:32 Dose: 10 mg Documented by: - Interaction Disposition, : in Room with Family Interaction: Holding Feeding: Attempted ; Nursed Fair/Poor Support Person: - Recovery Exam Fundal Tone: Firm Fundal Level: At Umbilicus Fundal Placement: Midline Lochia Amount: Small Lochia Color: Rubra/Red Perineum Description: Edematous, Other (see below) Other Perinuem Description: Laceration with repair Episiotomy/Laceration: Approximated Bladder Status: Voiding - Exam General: Alert, Oriented, Cooperative GI/Abdominal Exam: Soft, Non-Tender Extremities: Normal Inspection - Problem List & Annotations (1) 37 weeks gestation of SNOMED Code(s): 21506831 Code(s): Z3A.37 - 37 WEEKS GESTATION OF Status: Acute Current Visit: Yes (2) Elevated blood pressure affecting in third trimester, antepartum SNOMED Code(s): 79529843, 60129936, 875916837 Code(s): O16.3 - UNSPECIFIED MATERNAL HYPERTENSION, THIRD TRIMESTER Status: Acute Current Visit: Yes (3) Group B streptococcal carriage complicating SNOMED Code(s): 993403677903054 Code(s): O99.820 - STREPTOCOCCUS B CARRIER STATE COMPLICATING Status: Acute Current Visit: Yes (4) Not immune to rubella SNOMED Code(s): 980371149 Code(s): Z78.9 - OTHER SPECIFIED HEALTH STATUS Status: Acute Current Visit: Yes - Problem List Review Problem List Initiated/Reviewed/Updated: Yes - My Orders Last 24 Hours: My Active Orders 12/12/20 Dinner Regular Diet [DIET] 12/12/20 20:30 Acetaminophen [TylenoL] 650 mg PO Q4H PRN Benzocaine/Menthol [Dermoplast Pain Relief [place]] See Dose Instructions TOP ASDIRECTED PRN Docusate Sodium [Colace] 100 mg PO BID PRN Ibuprofen [Motrin] 600 mg PO Q6H PRN witch Jorge [Tucks] 1 pad TOP ASDIRECTED PRN Heat Therapy [OM.PC] PRN 12/12/20 20:30 Activity as Tolerated [RC] PER UNIT ROUTINE Vital Signs [RC] ,,, Assess Lochia [WOMSER] Per Unit Routine Assess Uterine Involution [WOMSER] Per Unit Routine Breast Pump [WOMSER] Per Unit Routine Ice Therapy [OM.PC] Per Unit Routine Perineal Care [OM.PC] Per Unit Routine Peripheral IV Discontinue [OM.PC] Routine Sitz Bath [OM.PC] Per Unit Routine 12/13/20 09:00 Sertraline [Zoloft] 25 mg PO DAILY 12/13/20 20:30 Heat Therapy [OM.PC] PRN - Assessment Assessment:: PPD#1 - Plan Plan:: Routine cares Breast feeding Monitor BP's closely, have been normal since delivery Discharge home tomorrow
--- NOTE | 2020-12-13 07:29 | PCM48HPAN ---
Post Anesthesia Note - EVALUATION WITHIN 48HRS OF ANESTHETIC Vital Signs in Normal Range: Yes Patient Participated in Evaluation: Yes Respiratory Function Stable: Yes Airway Patent: Yes Cardiovascular Function Stable: Yes Hydration Status Stable: Yes Pain Control Satisfactory: Yes Nausea and Vomiting Control Satisfactory: Yes Mental Status Recovered: Yes Vital Signs: Last Vital Signs Temp 36.6 C 12/13/20 04:15 Pulse 88 12/13/20 04:15 Resp 15 12/13/20 04:15 BP 120/65 12/13/20 04:15 Pulse Ox 99 12/13/20 04:15
[2020-12-13] MEDS: Sertraline 25 MG Tab PO SCH (08:50)
[2020-12-13] MEDS ORDERED: Sertraline 25 MG Tab PO SCH (09:00)
[2020-12-14] MEDS: Ibuprofen 600 MG Tab PO PRN (05:55)
--- NOTE | 2020-12-14 08:12 | PCM.DCSUM1 ---
Discharge Summary - Discharge Data Discharge Date: 12/14/20 Discharge Disposition: Home, Self-Care 01 Condition: Good - Referral to Home Health Primary Care Physician: Harriet Marlow MD - Discharge Diagnosis/Problem(s) (1) 37 weeks gestation of SNOMED Code(s): 59406634 ICD Code: Z3A.37 - 37 WEEKS GESTATION OF Status: Acute Current Visit: Yes (2) Elevated blood pressure affecting in third trimester, antepartum SNOMED Code(s): 04156195, 30299019, 538306781 ICD Code: O16.3 - UNSPECIFIED MATERNAL HYPERTENSION, THIRD TRIMESTER Status: Acute Current Visit: Yes (3) Group B streptococcal carriage complicating SNOMED Code(s): 714231274234415 ICD Code: O99.820 - STREPTOCOCCUS B CARRIER STATE COMPLICATING Status: Acute Current Visit: Yes (4) Not immune to rubella SNOMED Code(s): 370710764 ICD Code: Z78.9 - OTHER SPECIFIED HEALTH STATUS Status: Acute Current Visit: Yes - Patient Summary/Data Complications: None Consults: None Recommended Follow-up Testing/Procedures: Follow up in 1 week for BP check and in 3 weeks for check Hospital Course: Patient is a 25 y/o at 37 6/7 wks who presented for evaluation after feeling well. Had had mild range BP in clinic day before, but findings did not persist on L&D that day. When seen day of admission BP's essentially normal as were labs, but patient hyperreflexive. Reviewed likely impending BP disorder of . Reviewed risks/benefits and discussed IOL. Patient did agree to this. Induction done with Cytotec, folely bulb, and pitocin. Progressed well and underwent an uncomplicated . See delivery note. did well and was discharged home on PPD#2 - Patient Instructions Diet: Regular Diet as Tolerated Activity: As Tolerated Activity, Other: Pelvic rest for 6 weeks Driving: May Drive Today Showering/Bathing: May Shower Showering/Bathing, Other: May Bathe Notify Provider of: Fever, Increased Pain, Swelling and Redness, Drainage, Nausea and/or Vomiting - Discharge Plan *PRESCRIPTION DRUG MONITORING PROGRAM REVIEWED*: No *COPY OF PRESCRIPTION DRUG MONITORING REPORT IN PATIENT KATIE: No Home Medications: Home Meds Vits #93/Iron Fum/FA [ Formula Tablet] 1 tab PO DAILY 12/10/20 [History] Sertraline [Zoloft] 1 tab PO DAILY 12/11/20 [History] Docusate Sodium [Colace] 100 mg PO BID PRN cap 12/14/20 [Rx] Ibuprofen [Motrin] 600 mg PO Q6H PRN tablet 12/14/20 [Rx] Patient Handouts: Vaginal Delivery, Loss, Care After Referrals: Harriet Marlow MD [Primary Care Provider] - (1 week for RN only BP check 3 weeks for check ) - Discharge Summary/Plan Comment DC Time >30 min.: No - Patient Data Vitals - Most Recent: Last Vital Signs Temp 36.9 C 12/14/20 05:51 Pulse 84 12/14/20 05:51 Resp 15 12/14/20 05:51 BP 119/68 12/14/20 05:51 Pulse Ox 100 12/14/20 05:51 Weight - Most Recent: 87.997 kg Med Orders - Current: Current Medications Acetaminophen (Acetaminophen 325 Mg Tab) 650 mg PO Q4H PRN PRN Reason: mild pain or fever Benzocaine/Menthol (Benzocaine/Menthol 20%-0.5% [place] 56 Gm Canister) 0 gm TOP ASDIRECTED PRN PRN Reason: Perineal Comfort Measure Last Admin: 12/12/20 22:23 Dose: 1 canister Documented by: Docusate Sodium (Docusate Sodium 100 Mg Cap) 100 mg PO BID PRN PRN Reason: Constipation Last Admin: 12/12/20 22:22 Dose: 100 mg Documented by: Ibuprofen (Ibuprofen 600 Mg Tab) 600 mg PO Q6H PRN PRN Reason: Mild pain or fever Last Admin: 12/14/20 05:55 Dose: 600 mg Documented by: Sertraline HCl (Sertraline 25 Mg Tab) 25 mg PO DAILY PETEY Last Admin: 12/13/20 08:50 Dose: 25 mg Documented by: Carlos Enrique Ron (Carlos Enrique Ron Medicated Pads 40/Jar) 1 pad TOP ASDIRECTED PRN PRN Reason: Perineal Comfort Measure Last Admin: 12/12/20 22:22 Dose: 1 container Documented by: Discontinued Medications Acetaminophen (Acetaminophen 325 Mg Tab) 650 mg PO Q4H PRN PRN Reason: Pain (Mild 1-3) and fever Diphenhydramine HCl (Diphenhydramine 50 Mg/Ml Sdv) 25 mg IVPUSH Q6H PRN PRN Reason: pruritis Ephedrine Sulfate (Ephedrine 50 Mg/Ml Sdv) 5 mg IVPUSH ASDIRECTED PRN PRN Reason: Hypotension Fentanyl (Fentanyl 100 Mcg/2 Ml Sdv) 100 mcg EPIDUR Q3H PRN PRN Reason: Pain Last Admin: 12/12/20 12:41 Dose: 100 mcg Documented by: Fentanyl/Bupivacaine HCl (Bupivacaine/Fentanyl/Ns 100 Ml Bag) 100 ml EPIDUR ASDIRECTED PRN PRN Reason: Pain Last Admin: 12/12/20 12:41 Dose: 100 ml Documented by: Lactated Ringer's (Ringers, Lactated) 1,000 mls @ 40 mls/hr IV ASDIRECTED PETEY Last Admin: 12/12/20 14:08 Dose: 40 mls/hr Documented by: Oxytocin/Lactated Ringer's (Pitocin In Lr 10 Units/1,000 Ml) 10 unit in 1,000 mls @ 12 mls/hr IV TITRATE PETEY; Protocol Last Titration: 12/12/20 17:24 Dose: 12 munits/min, 72 mls/hr Documented by: Ampicillin Sodium 2 gm/ Sodium (Chloride) 100 mls @ 200 mls/hr IV ONETIME ONE Stop: 12/12/20 07:29 Last Admin: 12/12/20 08:08 Dose: 200 mls/hr Documented by: Ampicillin Sodium 1 gm/ Sodium (Chloride) 100 mls @ 200 mls/hr IV Q4H PETEY Last Admin: 12/12/20 21:00 Dose: Not Given Documented by: Oxytocin/Lactated Ringer's (Pitocin In Lr 10 Units/1,000 Ml) 10 unit in 1,000 mls @ 500 mls/hr IV .CONTINUOUS PETEY Lidocaine/Epinephrine (Lidocaine 1.5% With Epinephrine 1:200,000 5 Ml Amp) 5 ml .ROUTE .STK-MED ONE Stop: 12/12/20 16:01 Misoprostol (Misoprostol 25 Mcg (1/4 Of 100 Mcg) Tab) 25 mcg VAG Q4H PRN PRN Reason: cervical ripening Last Admin: 12/12/20 03:12 Dose: 25 mcg Documented by: Nalbuphine HCl (Nalbuphine 10 Mg/1 Ml Vial) 10 mg IVPUSH Q2H PRN PRN Reason: Pain Ondansetron HCl (Ondansetron 4 Mg/2 Ml Sdv) 4 mg IVPUSH Q4H PRN PRN Reason: Nausea/Vomiting Last Admin: 12/12/20 12:18 Dose: 4 mg Documented by: Sertraline HCl (Sertraline 25 Mg Tab) 25 mg PO DAILY PETEY Last Admin: 12/12/20 11:48 Dose: Not Given Documented by: Sertraline HCl (Sertraline 25 Mg Tab) 25 mg PO DAILY [facility] Sodium Chloride (Sodium Chloride 0.9% 10 Ml Syringe) 10 ml FLUSH ASDIRECTED PRN PRN Reason: Keep Vein Open Zolpidem Tartrate (Zolpidem 10 Mg Tab) 10 mg PO ONETIME PRN PRN Reason: Insomnia Last Admin: 12/11/20 22:32 Dose: 10 mg Documented by:
[2020-12-14 09:30] VITALS: BP 124/80; PULSE 92
[2020-12-14] MEDS ORDERED: Measles, Mumps & Rubella Vaccine 0.5 ML SDV SUBCUT ONE (09:50)
[2020-12-14] MEDS: Sertraline 25 MG Tab PO SCH (10:25)
== END 2020-12-14 13:35 | disposition home or self-care (01) | DRG 560 ==
LOC: JD.OBCHECK 16:00 → JD.OB 16:12 → JD.OBCHECK 17:35 → JD.OB 18:20 → OBSVTOIN 12-12 19:01
PROVIDERS: ADMIT Obstetrics & Gynecology; ATTEND Obstetrics & Gynecology
PROC: 10E0XZZ Delivery of Products of Conception, External Approach (ICD-10-PCS; principal; 2020-12-12)
PROC: 3E0P7VZ Introduction of Hormone into Female Reproductive, Via Natural or Artificial Opening (ICD-10-PCS; 2020-12-12)
PROC: 3E033VJ Introduction of Other Hormone into Peripheral Vein, Percutaneous Approach (ICD-10-PCS; 2020-12-12)
PROC: 0KQM0ZZ Repair Perineum Muscle, Open Approach (ICD-10-PCS; 2020-12-12)
PROC: 3E0R3BZ Introduction of Anesthetic Agent into Spinal Canal, Percutaneous Approach (ICD-10-PCS; 2020-12-12)
PROC: 00HU33Z Insertion of Infusion Device into Spinal Canal, Percutaneous Approach (ICD-10-PCS; 2020-12-12)
PROC: 0U7C7ZZ Dilation of Cervix, Via Natural or Artificial Opening (ICD-10-PCS; 2020-12-12)
PROC: 10907ZC Drainage of Amniotic Fluid, Therapeutic from Products of Conception, Via Natural or Artificial Opening (ICD-10-PCS; 2020-12-12)
DX: O16.3 Unspecified maternal hypertension, third trimester (principal); Z37.0 Single live birth; O99.824 Streptococcus B carrier state complicating childbirth; O70.1 Second degree perineal laceration during delivery; Z3A.37 37 weeks gestation of pregnancy; Z20.822 Contact with and (suspected) exposure to COVID-19
CPT/HCPCS: 01967; 36415; 51701; 51702; 59025; 59409; 82565; 82570; 84156; 84450; 84460; 85027; 86592; 86850; 86900; 86901; 90471; 90707; A9270-GY; G0010; J0290; J2405; J2590; J3010; J7120; U0002

== ENCOUNTER 2021-03-11 10:15 | Emergency (ER) | payer BC ==
[2021-03-11] MEDS ORDERED: Sodium Chloride 0.9% 10 ML Syringe FLUSH PRN (11:07)
[2021-03-11] MEDS ORDERED: Sodium Chloride 0.9% 1,000 ML IV ONE (11:07)
[2021-03-11] MEDS ORDERED: Ketorolac 30 MG/ML SDV IVPUSH ONE (11:07)
[2021-03-11] MEDS ORDERED: Ondansetron 4 MG/2 ML SDV IVPUSH ONE (11:07)
--- NOTE | 2021-03-11 11:32 | EDM.PDOC ---
ED HPI GENERAL MEDICAL PROBLEM - General Chief Complaint: Headache Stated Complaint: HEADACHE X 2 DAYS Time Seen by Provider: 03/11/21 10:39 Source of Information: Reports: Patient History Limitations: Reports: No Limitations - History of Present Illness INITIAL COMMENTS - FREE TEXT/NARRATIVE: 26-year-old female presents the emergency department today with a complaint of a headache for the past 2 days. She states she has tried to take Tylenol and ibuprofen and this has not aborted the headache. She denies any history of migraine headaches in the past. She states she is sensitive to light however she is not sensitive to sound. At the present time she does not notice any halos around lights however she states that she has noticed that intermittently over the past couple of days. She denies any recent fever, chills, vomiting, diarrhea, sore throat, or cough. She still has her taste and smell. She states that she has not had nausea over the course of the past 2 days associated with the headache however prior to the headache a day or 2 before, she did have some nausea and did take a test and this was negative. She does not smoke. She does not take control. She states she started taking Zoloft back in November but has adjusted fairly easily to this new medication. She has no significant past medical history. 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 States that her headache pain is primarily frontal and right temporal. She rates it as a 7 out of 10. She is currently breast-feeding. head Pain Score (Numeric/FACES): 7 - Related Data Allergies Allergy/AdvReac Type Severity Reaction Status Date / Time latex Allergy Rash Verified 12/11/20 16:42 onion Allergy Swollen Verified 03/11/21 10:25 Tongue Home Meds: Home Meds Vits #93/Iron Fum/FA [ Formula Tablet] 1 tab PO DAILY 12/10/20 [History] Sertraline [Zoloft] 1 tab PO DAILY 12/11/20 [History] Docusate Sodium [Colace] 100 mg PO BID PRN cap 12/14/20 [Rx] Ibuprofen [Motrin] 600 mg PO Q6H PRN tablet 12/14/20 [Rx] Past Medical History HEENT History: Reports: Other (See Below) Other HEENT History: has increased pressures in left eye. 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 - Physical Exam Exam: See Below Exam Limited By: No Limitations General Appearance: Alert, WD/WN, No Apparent Distress Eye Exam: Bilateral Eye: EOMI, Normal Inspection, PERRL Ears: Normal External Exam, Normal Canal, Hearing Grossly Normal, Normal TMs Nose: Normal Inspection Throat/Mouth: Normal Inspection, Normal Lips, Normal Voice, No Airway Compromise Head Exam: Atraumatic, Normocephalic Neck: Normal Inspection, Supple, Non-Tender, Full Range of Motion. No: Lymphadenopathy (L), Lymphadenopathy (R) Respiratory/Chest: No Respiratory Distress, Lungs Clear, Normal Breath Sounds, No Accessory Muscle Use, Chest Non-Tender Cardiovascular: Normal Peripheral Pulses, Regular Rate, Rhythm, No Edema, No Murmur GI/Abdominal: Normal Bowel Sounds, Soft, Non-Tender, No Distention (Female) Exam: Deferred Rectal (Female) Exam: Deferred Neuro Exam (Abbreviated): Alert, Oriented, CN II-XII Intact, Normal Cognition, No Motor/Sensory Deficits Back Exam: Normal Inspection Extremities: Normal Inspection, Normal Range of Motion, No Pedal Edema, Normal Capillary Refill Psychiatric: Normal Affect, Normal Mood Skin Exam: Warm, Dry, Intact, Normal Color, No Rash Course - Vital Signs Text/Narrative:: Upon assessment, the patient complains of frontal and right temporal headache pain rated at a 7 and a 10. She denies any blurred vision or double vision. She does have photophobia however no phonophobia. Full neuro exam was completed and this was unremarkable. She denies any hemiplegia. I have ordered a CT of the head as patient does not have a history of migraine is never had a headache last this long or be this severe in the past. I have also ordered labs to include a CBC, CMP and a magnesium level. We will order Covid swab as well. Give her a liter of IV fluids, Zofran, and Toradol to see if we can abort this headache. Patient is breast-feeding so I will likely see if I can hold out on giving her Benadryl at this time. Last Recorded V/S: Last Vital Signs Temp 97.4 F 03/11/21 10:21 Pulse 69 03/11/21 10:21 Resp 18 03/11/21 10:21 BP 140/107 H 03/11/21 10:21 Pulse Ox 97 03/11/21 10:21 - Orders/Labs/Meds Orders: Active Orders 24 hr Category Date Time Status Sodium Chloride 0.9% [Saline Flush] Med 03/11/21 11:07 Active 10 ml FLUSH ASDIRECTED PRN Saline Lock Insert [OM.PC] Stat Oth 03/11/21 11:07 Ordered Medication Orders Sodium Chloride (Sodium Chloride 0.9% 10 Ml Syringe) 10 ml FLUSH ASDIRECTED PRN PRN Reason: Keep Vein Open Last Admin: 03/11/21 11:46 Dose: 10 ml Documented by: PRATIBHA Labs: Laboratory Tests 03/11/21 03/11/21 03/11/21 Range/Units 11:40 11:40 11:55 WBC 8.52 (3.98-10.04) K/mm3 RBC 4.92 (3.98-5.22) M/mm3 Hgb 13.7 D (11.2-15.7) gm/dl Hct 43.0 (34.1-44.9) % MCV 87.4 D (79.4-94.8) fl MCH 27.8 (25.6-32.2) pg MCHC 31.9 L (32.2-35.5) g/dl RDW Std Deviation 42.5 (36.4-46.3) fL Plt Count 315 D (182-369) K/mm3 MPV 9.6 (9.4-12.3) fl Neut % (Auto) 58.2 (34.0-71.1) % Lymph % (Auto) 31.9 (19.3-51.7) % [place] % (Auto) 8.7 (4.7-12.5) % Eos % (Auto) 0.9 (0.7-5.8) Baso % (Auto) 0.2 (0.1-1.2) % Neut # (Auto) 4.95 (1.56-6.13) K/mm3 Lymph # (Auto) 2.72 (1.18-3.74) K/mm3 [place] # (Auto) 0.74 H (0.24-0.36) K/mm3 Eos # (Auto) 0.08 (0.04-0.36) K/mm3 Baso # (Auto) 0.02 (0.01-0.08) K/mm3 Sodium 140 (136-145) mEq/L Potassium 4.5 (3.5-5.1) mEq/L Chloride 102 (98-107) mEq/L Carbon Dioxide 29 (21-32) mEq/L Anion Gap 13.5 (5-15) BUN 11 (7-18) mg/dL Creatinine 0.9 (0.55-1.02) mg/dL Est Cr Clr Drug Dosing 86.73 mL/min Estimated GFR (MDRD) > 60 (>60) mL/min BUN/Creatinine Ratio 12.2 L (14-18) Glucose 84 (70-99) mg/dL Calcium 9.3 (8.5-10.1) mg/dL Magnesium 2.0 (1.8-2.4) mg/dL Total Bilirubin 0.2 (0.2-1.0) mg/dL AST 19 (15-37) U/L ALT 25 (14-59) U/L Alkaline Phosphatase 103 (46-116) U/L Total Protein 7.7 (6.4-8.2) g/dl Albumin 4.0 (3.4-5.0) g/dl Globulin 3.7 gm/dL Albumin/Globulin Ratio 1.1 (1-2) SARS-CoV-2 RNA (JAZMIN) Negative (NEGATIVE) Meds: Medications Generic Name Dose Route Start Last Admin Trade Name Freq PRN Reason Stop Dose Admin Sodium Chloride 10 ml 03/11/21 11:07 03/11/21 11:46 Sodium Chloride 0.9% 10 Ml Syringe FLUSH 10 ml ASDIRECTED PRN Administration Keep Vein Open Discontinued Medications Generic Name Dose Route Start Last Admin Trade Name T[place]ha PRN Reason Stop Dose Admin Sodium Chloride 1,000 mls @ 999 mls/hr 03/11/21 11:07 03/11/21 11:46 Normal Saline IV 03/11/21 12:07 999 mls/hr ONETIME ONE Administration Ketorolac Tromethamine 30 mg 03/11/21 11:07 03/11/21 11:44 Ketorolac 30 Mg/Ml Sdv IVPUSH 03/11/21 11:08 30 mg ONETIME ONE Administration Ondansetron HCl 4 mg 03/11/21 11:07 03/11/21 11:42 Ondansetron 4 Mg/2 Ml Sdv IVPUSH 03/11/21 11:08 4 mg ONETIME ONE Administration - Re-Assessments/Exams Free Text/Narrative Re-Assessment/Exam: 03/11/21 12:[address] of the head comparison to prior MRI of the brain on 05/08/2009, and prior head CT of 05/05/2009: 1. Stable arachnoid cyst within the right side of the posterior fossa. 2. Nothing acute is seen on noncontrast head CT study. 03/11/21 12:51 Hematology reveals a WBC of 8.52, hemoglobin 13.7, hematocrit 43.0, platelet count 350 Chemistry reveals a sodium of 140, potassium 4.5, anion gap 13.5, BUN 11, creatinine 0.9, glucose 84, magnesium 2.0 Serology reveals Covid negative. Patient states she is feeling much better and headache has completely resolved as well as nausea. She will be discharged to home with recommendations that she follow-up with her primary care physician in about a week. Departure - Departure Time of Disposition: 12:52 Disposition: Home, Self-Care 01 Condition: Good Clinical Impression: Migraine - Discharge Information Instructions: Migraine Headache, [id number] Referrals: Harriet Marlow MD [Primary Care Provider] - Forms: ED Department Discharge Additional Instructions: You were seen in the emergency department today with complaints of headache that has lasted over a period of [address] scan was completed and this was un remarkable other than it showed that the cyst is stable. Labs were also completed and these were all within normal limits as well and your Covid swab was negative. You likely did have a migraine headache and we were able to abort this with IV fluids, nausea medication and pain medication. These medications were all safe to give while you are breast-feeding. Go home and rest. Drink plenty of fluids. Should your headache start to develop again you may take Tylenol 650 mg or ibuprofen 600 mg. Recommend that you follow-up with your primary care provider in about a week. Should your condition worsen or change, do not hesitate returning to the emergency department. Sepsis Event Note (ED) - Evaluation Sepsis Screening Result: No Definite Risk - Focused Exam Vital Signs: Vital Signs Temp Pulse Resp BP Pulse Ox 03/11/21 10:21 97.4 F 69 18 140/107 H 97 - My Orders Last 24 Hours: My Active Orders 03/11/21 11:07 Sodium Chloride 0.9% [Saline Flush] 10 ml FLUSH ASDIRECTED PRN Saline Lock Insert [OM.PC] Stat - Assessment/Plan Last 24 Hours: My Active Orders 03/11/21 11:07 Sodium Chloride 0.9% [Saline Flush] 10 ml FLUSH ASDIRECTED PRN Saline Lock Insert [OM.PC] Stat
--- NOTE | 2021-03-11 12:13 | CT ---
Head CT Technique: Multiple axial sections through the brain were obtained. Intravenous contrast was not utilized. Reconstructed coronal and sagittal images were obtained. Comparison: Prior MRI brain of 05/08/[address] study of 05/05/09. Findings: Ventricles along with basal cisterns and sulci over the convexities are within normal limits for the patient's age. Arachnoid cyst is seen within the right side of the posterior fossa measuring about 2.6 cm in greatest size, this appears as a stable finding from previous intracranial studies. No abnormal parenchymal densities are otherwise seen within the brain parenchyma. No midline shift or mass-effect is seen. Bone window settings were reviewed. The visualized mastoid sinuses and paranasal sinuses appear clear. No acute calvarial abnormality is seen. Impression: 1. Stable arachnoid cyst within the right side of the posterior fossa. 2. Nothing acute is seen on noncontrast head CT study. Diagnostic code #2
[2021-03-11 13:30] VITALS: BP 119/83; PULSE 68
== END 2021-03-11 13:21 | disposition home or self-care (01) ==
LOC: JD.ED 10:15
DX: G43.909 Migraine, unspecified, not intractable, without status migrainosus (principal); Z20.822 Contact with and (suspected) exposure to COVID-19; Z91.040 Latex allergy status; Z91.018 Allergy to other foods; Z79.899 Other long term (current) drug therapy
CPT/HCPCS: 36415; 70450; 80053; 83735; 85025; 87635; 96374; 96375; 99284; J1885; J2405; J7030; U0002

== ENCOUNTER 2022-08-13 02:44 | Emergency (ER) | payer BC ==
[2022-08-13] MEDS ORDERED: Sodium Chloride 0.9% 10 ML Syringe FLUSH PRN (03:31)
[2022-08-13] MEDS ORDERED: Sodium Chloride 0.9% 1,000 ML IV SCH (03:45)
[2022-08-13 04:14] LABS: CORONAVIRUS COVID-19 NAA POSITIVE (NEGATIVE)
[2022-08-13 05:03] VITALS: BP 128/87; PULSE 119
== END 2022-08-13 05:00 | disposition home or self-care (01) ==
LOC: JD.ED 02:44
DX: O98.513 Other viral diseases complicating pregnancy, third trimester (principal); U07.1 COVID-19; Z3A.33 33 weeks gestation of pregnancy; Z79.899 Other long term (current) drug therapy; Z91.040 Latex allergy status; Z91.018 Allergy to other foods; Z90.49 Acquired absence of other specified parts of digestive tract
CPT/HCPCS: 0241U; 93005; 96360; 99283; J3490; J7030

== ENCOUNTER 2022-09-08 15:30 | Inpatient (IN) | payer BC ==
[~2022-09-08 15:30] MED LIST: Lidocaine 1% 10 ML MDV ONE
[2022-09-08] MEDS ORDERED: Ondansetron 4 MG/2 ML SDV IVPUSH PRN (15:39)
[2022-09-08] MEDS ORDERED: Nalbuphine 10 MG/0.5 ML Syringe IVPUSH PRN (15:39)
[2022-09-08] MEDS ORDERED: Lidocaine 1% 50 ML MDV INJECT ONE (15:39)
[2022-09-08] MEDS ORDERED: Sodium Chloride 0.9% 10 ML Syringe FLUSH PRN (15:39)
[2022-09-08] MEDS ORDERED: Betamethasone Acetate/Betamethasone Sod Phosphate 30 MG/5 ML MDV IM ONE (15:42)
[2022-09-08] MEDS ORDERED: Oxytocin/Lactated Ringers 10 UNIT/1,000 ML BAG IV SCH ×2 (15:45)
[2022-09-08] MEDS: Lactated Ringers 1,000 ML IV SCH ×3 (16:26→21:30)
[2022-09-08] MEDS ORDERED: diphenhydrAMINE 50 MG/ML SDV IVPUSH PRN (19:16)
[2022-09-08] MEDS ORDERED: ePHEDrine 50 MG/ML SDV IVPUSH PRN (19:16)
[2022-09-08] MEDS ORDERED: fentaNYL 100 MCG/2 ML SDV EPIDUR PRN (19:16)
[2022-09-08] MEDS ORDERED: Bupivacaine/fentaNYL/NS 100 ML Bag EPIDUR PRN (19:16)
[2022-09-08] MEDS ORDERED: Sodium Chloride 0.9% 10 ML Syringe FLUSH SCH (21:00)
[2022-09-08] MEDS ORDERED: Dexmedetomidine 200 MCG/2 ML SDV ONE (21:20)
[2022-09-09] MEDS ORDERED: Benzocaine/Menthol 20%-0.5% Spray 78 GM Cannister TOP PRN (02:18)
[2022-09-09] MEDS ORDERED: Witch Hazel Medicated Pads 40/Jar TOP PRN (02:18)
[2022-09-09] MEDS ORDERED: Acetaminophen 325 MG Tab PO PRN (02:18)
[2022-09-09] MEDS: Ibuprofen 600 MG Tab PO PRN ×3 (02:48→19:09)
[2022-09-10 08:38] VITALS: BP 127/80; PULSE 72
== END 2022-09-10 11:58 | disposition home or self-care (01) | DRG 560 ==
LOC: JD.OB 15:30
PROVIDERS: ADMIT Obstetrics & Gynecology; ATTEND Obstetrics & Gynecology
PROC: 10E0XZZ Delivery of Products of Conception, External Approach (ICD-10-PCS; principal; 2022-09-08)
PROC: 10907ZC Drainage of Amniotic Fluid, Therapeutic from Products of Conception, Via Natural or Artificial Opening (ICD-10-PCS; 2022-09-08)
PROC: 3E033VJ Introduction of Other Hormone into Peripheral Vein, Percutaneous Approach (ICD-10-PCS; 2022-09-08)
PROC: 3E0R3BZ Introduction of Anesthetic Agent into Spinal Canal, Percutaneous Approach (ICD-10-PCS; 2022-09-08)
PROC: 00HU33Z Insertion of Infusion Device into Spinal Canal, Percutaneous Approach (ICD-10-PCS; 2022-09-08)
DX: O14.94 Unspecified pre-eclampsia, complicating childbirth (principal); Z3A.37 37 weeks gestation of pregnancy; Z37.0 Single live birth; Z91.040 Latex allergy status; Z91.018 Allergy to other foods; Z86.16 Personal history of COVID-19; Z90.49 Acquired absence of other specified parts of digestive tract
CPT/HCPCS: 36415; 51702; 82565; 82570; 83615; 84156; 84450; 84460; 84520; 84550; 85025; 86592; 86850; 86900; 86901; A9270-GY; J0702; J2590; J3010; J7120

== ENCOUNTER 2024-03-26 06:45 | Inpatient (IN) | payer BC ==
[2024-03-26] MEDS ORDERED: Ondansetron 4 MG/2 ML SDV IVPUSH PRN (08:28)
[2024-03-26] MEDS ORDERED: Lidocaine 1% 50 ML MDV INJECT PRN (08:28)
[2024-03-26] MEDS ORDERED: Nalbuphine 10 MG/ML Syringe IVPUSH PRN (08:28)
[2024-03-26] MEDS ORDERED: Oxytocin/Lactated Ringers 30 UNIT/500 ML BAG IV SCH (08:30)
[2024-03-26] MEDS ORDERED: Lactated Ringers 1,000 ML IV SCH (08:30)
[2024-03-26] MEDS ORDERED: Sodium Chloride 0.9% 10 ML Syringe FLUSH SCH (09:00)
[2024-03-26] MEDS: Ampicillin 2 GM in Sodium Chloride 0.9% 100 ML IV ONE (09:00)
[2024-03-26] MEDS: Oxytocin/Lactated Ringers 30 UNIT/500 ML BAG IV SCH (09:02)
[2024-03-26 09:43] LABS: BASOPHILS PERCENT AUTO 0.2 % (0.0-1.0); EOSINOPHILS ABSOLUTE AUTO 0.1 K/mm3 (0.0-0.4); EOSINOPHILS PERCENT AUTO 0.6 % (0.0-6.0); HEMATOCRIT 35.3 % (37.0-47.0); HEMOGLOBIN 10.9 gm/dl (12.0-16.0); IMMATURE GRAN ABSOLUTE AUTO 0.06 K/mm3 (0.00-0.05); IMMATURE GRAN PERCENT AUTO 0.5 % (0.0-0.4); LYMPHOCYTES ABSOLUTE AUTO 1.7 K/mm3 (1.0-4.8); LYMPHOCYTES PERCENT AUTO 14.1 % (24.0-44.0); MEAN CORPUSCULAR HEMOGLOBIN 25.4 pg (28.0-32.0); MEAN CORPUSCULAR HGB CONC 30.9 g/dl (32.0-36.0); MEAN CORPUSCULAR VOLUME 82.3 fl (83.0-99.0); MEAN PLATELET VOLUME 9.8 fl (9.4-12.3); MONOCYTES ABSOLUTE AUTO 0.8 K/mm3 (0.0-0.8); MONOCYTES PERCENT AUTO 6.9 % (0.0-8.0); NEUTROPHILS ABSOLUTE AUTO 9.2 K/mm3 (1.8-7.7); NEUTROPHILS PERCENT AUTO 77.7 % (41.0-71.0); PLATELET COUNT,PLT 263 K/mm3 (150-400); RED BLOOD CELL COUNT 4.29 M/mm3 (4.10-5.30); WHITE BLOOD CELL COUNT,WBC 11.82 K/mm3 (3.9-11.3)
[2024-03-26] MEDS ORDERED: fentaNYL 100 MCG/2 ML SDV EPIDUR PRN (12:02)
[2024-03-26] MEDS ORDERED: ePHEDrine 50 MG/ML SDV IVPUSH PRN (12:02)
[2024-03-26] MEDS ORDERED: Bupivacaine/fentaNYL/NS 100 ML Bag EPIDUR PRN (12:02)
[2024-03-26] MEDS ORDERED: diphenhydrAMINE 50 MG/ML SDV IVPUSH PRN (12:02)
[2024-03-26] MEDS: Ampicillin 1 GM in Sodium Chloride 0.9% 100 ML IV SCH (13:07)
[2024-03-26] MEDS ORDERED: Acetaminophen 325 MG Tab PO PRN ×2 (13:26→13:32)
[2024-03-26] MEDS ORDERED: Bupivacaine 0.25% 10 ML SDV ONE (20:00)
[2024-03-26] MEDS ORDERED: ePHEDrine 50 MG/ML SDV ONE (20:00)
[2024-03-26] MEDS ORDERED: Benzocaine/Menthol 20%-0.5% Spray 78 GM Cannister TOP PRN (21:43)
[2024-03-26] MEDS ORDERED: Witch Hazel Medicated Pads 40/Jar TOP PRN (21:43)
[2024-03-26] MEDS: Acetaminophen 325 MG Tab PO SCH (23:54)
[2024-03-27] MEDS: Ibuprofen 600 MG Tab PO PRN (04:38)
[2024-03-27 05:22] LABS: BASOPHILS PERCENT AUTO 0.2 % (0.0-1.0); EOSINOPHILS ABSOLUTE AUTO 0.1 K/mm3 (0.0-0.4); EOSINOPHILS PERCENT AUTO 0.6 % (0.0-6.0); HEMATOCRIT 32.6 % (37.0-47.0); HEMOGLOBIN 10.5 gm/dl (12.0-16.0); IMMATURE GRAN PERCENT AUTO 0.6 % (0.0-0.4); LYMPHOCYTES ABSOLUTE AUTO 2.1 K/mm3 (1.0-4.8); LYMPHOCYTES PERCENT AUTO 13.3 % (24.0-44.0); MEAN CORPUSCULAR HEMOGLOBIN 26.3 pg (28.0-32.0); MEAN CORPUSCULAR HGB CONC 32.2 g/dl (32.0-36.0); MEAN CORPUSCULAR VOLUME 81.7 fl (83.0-99.0); MEAN PLATELET VOLUME 10.2 fl (9.4-12.3); MONOCYTES PERCENT AUTO 6.7 % (0.0-8.0); NEUTROPHILS ABSOLUTE AUTO 12.1 K/mm3 (1.8-7.7); NEUTROPHILS PERCENT AUTO 78.6 % (41.0-71.0); PLATELET COUNT,PLT 239 K/mm3 (150-400); RED BLOOD CELL COUNT 3.99 M/mm3 (4.10-5.30); WHITE BLOOD CELL COUNT,WBC 15.39 K/mm3 (3.9-11.3)
[2024-03-27] MEDS: Simethicone 80 MG Tab.Chew PO ONE (14:37)
[2024-03-28] MEDS: Docusate Sodium 100 MG Cap PO PRN (10:05)
[2024-03-28 12:42] VITALS: BP 143/94; PULSE 78
[2024-03-28] MEDS: Iopamidol 755 Mg/ML 100 ML Bottle IVPUSH ONE (13:53)
[2024-03-28] MEDS: Sodium Chloride 0.9% 10 ML Syringe FLUSH PRN (13:53)
[2024-03-28] MEDS: Sodium Chloride 0.9% 100 ML IV SCH (13:53)
== END 2024-03-28 17:30 | disposition home or self-care (01) | DRG 560 ==
LOC: JD.OB 06:45 → OBSVTOIN 19:32 → JD.OB 19:33
PROVIDERS: ADMIT Obstetrics & Gynecology; ATTEND Obstetrics & Gynecology
PROC: 10E0XZZ Delivery of Products of Conception, External Approach (ICD-10-PCS; principal; 2024-03-26)
PROC: 3E033VJ Introduction of Other Hormone into Peripheral Vein, Percutaneous Approach (ICD-10-PCS; 2024-03-26)
PROC: 10907ZC Drainage of Amniotic Fluid, Therapeutic from Products of Conception, Via Natural or Artificial Opening (ICD-10-PCS; 2024-03-26)
DX: O13.4 Gestational [pregnancy-induced] hypertension without significant proteinuria, complicating childbirth (principal); Z3A.37 37 weeks gestation of pregnancy; Z37.0 Single live birth; O99.824 Streptococcus B carrier state complicating childbirth; Z88.8 Allergy status to other drugs, medicaments and biological substances; Z91.040 Latex allergy status; Z86.16 Personal history of COVID-19
CPT/HCPCS: 36415; 51701; 59025; 59409; 71275; 71275-26; 85025; 86592; 86850; 86900; 86901; 93005; A9270-GY; C1758; J0290; J0665; J3490; J7999; Q9967

== ENCOUNTER 2024-12-05 16:19 | Emergency (ER) | payer BC ==
[2024-12-05] MEDS ORDERED: Sodium Chloride 0.9% 10 ML Syringe FLUSH PRN (16:48)
[2024-12-05 17:14] LABS: BASOPHILS ABSOLUTE AUTO 0.1 K/mm3 (0.0-0.2); BASOPHILS PERCENT AUTO 0.6 % (0.0-1.0); EOSINOPHILS ABSOLUTE AUTO 0.1 K/mm3 (0.0-0.4); EOSINOPHILS PERCENT AUTO 1.4 % (0.0-6.0); HEMATOCRIT 41.7 % (37.0-47.0); HEMOGLOBIN 13.4 gm/dl (12.0-16.0); IMMATURE GRAN ABSOLUTE AUTO 0.02 K/mm3 (0.00-0.05); IMMATURE GRAN PERCENT AUTO 0.2 % (0.0-0.4); LYMPHOCYTES ABSOLUTE AUTO 2.6 K/mm3 (1.0-4.8); LYMPHOCYTES PERCENT AUTO 26.6 % (24.0-44.0); MEAN CORPUSCULAR HEMOGLOBIN 27.6 pg (28.0-32.0); MEAN CORPUSCULAR HGB CONC 32.1 g/dl (32.0-36.0); MEAN PLATELET VOLUME 9.4 fl (9.4-12.3); MONOCYTES ABSOLUTE AUTO 0.7 K/mm3 (0.0-0.8); MONOCYTES PERCENT AUTO 7.1 % (0.0-8.0); NEUTROPHILS ABSOLUTE AUTO 6.3 K/mm3 (1.8-7.7); NEUTROPHILS PERCENT AUTO 64.1 % (41.0-71.0); PLATELET COUNT,PLT 366 K/mm3 (150-400); RED BLOOD CELL COUNT 4.85 M/mm3 (4.10-5.30); WHITE BLOOD CELL COUNT,WBC 9.77 K/mm3 (3.9-11.3)
[2024-12-05 17:45] LABS: A/G RATIO 1.1 (1-2); ALBUMIN 3.8 g/dl (3.4-5.0); ANION GAP 12.7 (5-15); BILIRUBIN TOTAL 0.2 mg/dL (0.2-1.0); BUN/CREATININE RATIO 18.8 (14-18); C-REACTIVE PROTEIN 0.69 mg/dL (<0.30); CALCIUM 9.2 mg/dL (8.5-10.1); CREATININE 0.8 mg/dL (0.55-1.02); EST CRCL DRUG DOSING (CG) 87.38 mL/min; MAGNESIUM 1.6 mg/dL (1.8-2.4); POTASSIUM,K 3.7 mEq/L (3.5-5.1); PROTEIN TOTAL,TP 7.4 g/dl (6.4-8.2); TSH 1.751 uIU/mL (0.358-3.74)
[2024-12-05] MEDS: Magnesium Oxide 400 MG Tab PO ONE (18:25)
[2024-12-05] MEDS: Sodium Chloride 0.9% 1,000 ML IV SCH (18:26)
[2024-12-05 19:12] LABS: APPEARANCE,URINE CLEAR (Clear); BILIRUBIN,URINE NEGATIVE (Negative); COLOR,URINE YELLOW (Yellow); GLUCOSE,URINE NEGATIVE (Negative); KETONES,URINE NEGATIVE (Negative); LEUKOCYTE ESTERASE,URINE NEGATIVE (Negative); NITRITE,URINE NEGATIVE (Negative); OCCULT BLOOD,URINE NEGATIVE (Negative); PH,URINE 6.5 (5.0-8.0); PROTEIN,URINE NEGATIVE (Negative); UROBILINOGEN,URINE 0.2 (0.2-1.0)
[2024-12-05 20:01] VITALS: BP 125/80; PULSE 85
== END 2024-12-05 19:59 | disposition home or self-care (01) ==
LOC: JD.ED 16:19
DX: R42 Dizziness and giddiness (principal); Z91.040 Latex allergy status; Z91.018 Allergy to other foods; Z79.82 Long term (current) use of aspirin; Z79.899 Other long term (current) drug therapy; Z86.16 Personal history of COVID-19; Z90.49 Acquired absence of other specified parts of digestive tract
CPT/HCPCS: 36415; 80053; 81003; 83735; 84443; 84484; 84703; 85025; 86140; 93005; 96360; 99284; A9270; J7030; 93010

== ENCOUNTER 2025-07-25 15:13 | Emergency (ER) | payer BC ==
[2025-07-25] MEDS ORDERED: Sodium Chloride 0.9% 10 ML Syringe FLUSH PRN (15:56)
[2025-07-25 16:07] LABS: BASOPHILS ABSOLUTE AUTO 0.1 K/mm3 (0.0-0.2); BASOPHILS PERCENT AUTO 0.3 % (0.0-1.0); EOSINOPHILS ABSOLUTE AUTO 0.1 K/mm3 (0.0-0.4); EOSINOPHILS PERCENT AUTO 0.3 % (0.0-6.0); IMMATURE GRAN ABSOLUTE AUTO 0.06 K/mm3 (0.00-0.05); IMMATURE GRAN PERCENT AUTO 0.3 % (0.0-0.4); LYMPHOCYTES ABSOLUTE AUTO 1.2 K/mm3 (1.0-4.8); LYMPHOCYTES PERCENT AUTO 6.7 % (24.0-44.0); MEAN PLATELET VOLUME 9.8 fl (9.4-12.3); MONOCYTES ABSOLUTE AUTO 1.0 K/mm3 (0.0-0.8); MONOCYTES PERCENT AUTO 5.4 % (0.0-8.0); NEUTROPHILS ABSOLUTE AUTO 16.1 K/mm3 (1.8-7.7); NEUTROPHILS PERCENT AUTO 87.0 % (41.0-71.0); NRBC ABSOLUTE 0.00 (0.00-0.02); NRBC PERCENT 0.0 % (0.0-0.2); PLATELET COUNT,PLT 305 K/mm3 (150-400); RED BLOOD CELL COUNT 4.93 M/mm3 (4.10-5.30); WHITE BLOOD CELL COUNT,WBC 18.48 K/mm3 (3.9-11.3)
[2025-07-25] MEDS: Ondansetron 4 MG/2 ML SDV IVPUSH ONE (16:13)
[2025-07-25 16:23] LABS: A/G RATIO 1.1 (1-2); ALANINE AMINOTRANSFERASE,ALT 20 U/L (14-59); BILIRUBIN TOTAL 0.3 mg/dL (0.2-1.0); BLOOD UREA NITROGEN,BUN 15 mg/dL (7-18); CARBON DIOXIDE,CO2 28 mEq/L (21-32); CHLORIDE,CL 106 mEq/L (98-107); CREATININE 0.8 mg/dL (0.55-1.02); ESTIMATED GFR 103 mL/min (>60); GLUCOSE RANDOM 157 mg/dL (70-99); PROTEIN TOTAL,TP 7.1 g/dl (6.4-8.2); SODIUM,NA 142 mEq/L (136-145)
[2025-07-25 16:29] LABS: ASPARTATE AMNIOTRANSFERASE,AST 26 U/L (15-37); POTASSIUM,K 4.3 mEq/L (3.5-5.1)
[2025-07-25] MEDS: Sodium Chloride 0.9% 10 ML Syringe FLUSH ONE (17:34)
[2025-07-25] MEDS: Iopamidol 612 MG/ML 100 ML Bottle IVPUSH ONE (17:34)
[2025-07-25] MEDS: diphenhydrAMINE 50 MG/ML SDV IVPUSH ONE (18:53)
[2025-07-25 19:07] LABS: APPEARANCE,URINE CLEAR (Clear); GLUCOSE,URINE NEGATIVE (Negative); OCCULT BLOOD,URINE TRACE-INTACT (Negative)
[2025-07-25 19:18] LABS: EPITHELIAL CELLS,URINE 0-5 /hpf (0-5)
[2025-07-25 20:16] VITALS: BP 121/76; PULSE 88
== END 2025-07-25 20:15 | disposition home or self-care (01) ==
LOC: JD.ED 15:13
DX: K52.9 Noninfective gastroenteritis and colitis, unspecified (principal); Z91.040 Latex allergy status; Z91.048 Other nonmedicinal substance allergy status; Z79.899 Other long term (current) drug therapy; Z86.16 Personal history of COVID-19; Z90.49 Acquired absence of other specified parts of digestive tract
CPT/HCPCS: 36415; 74177; 80053; 81001; 83690; 84703; 85025; 86140; 96361; 96374; 96375; 99285; J1200; J2405; J2765; J7030; Q9967; 99284